=== PATIENT | female | born 1950 | race Caucasian/White ===

== ENCOUNTER 2021-07-30 19:08 | Emergency (ER) | payer MEDICARE, BC ==
[2021-07-30] MEDS ORDERED: Cyclobenzaprine 10 MG Tab PO ONE (19:09)
[2021-07-30] MEDS ORDERED: Acetaminophen/HYDROcodone 325-5 MG Tab PO ONE (19:09)
[2021-07-30 19:53] VITALS: BP 153/75; PULSE 119
[2021-07-30] MEDS ORDERED: Orphenadrine 60 MG/2 ML Inj IM ONE (20:07)
[2021-07-30] MEDS ORDERED: fentaNYL 100 MCG/2 ML SDV IVPUSH ONE (20:08)
--- NOTE | 2021-07-30 20:43 | EDM.PDOC ---
ED HPI GENERAL MEDICAL PROBLEM - General Chief Complaint: Lower Extremity Injury/Pain Stated Complaint: RIGHT LEG PULLED MUSCLES Time Seen by Provider: 07/30/21 19:30 Source of Information: Reports: Patient History Limitations: Reports: No Limitations - History of Present Illness INITIAL COMMENTS - FREE TEXT/NARRATIVE: ED per w/c reports fall 2 hours prior, going up stair, right foot caught fell forward with foot under/ between stair, groin pain and buttock with straightening denied pain in pelvis or hip area leg Did not hit head. 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 Right Upper Posterior Leg Pain Score (Numeric/FACES): 1 - Related Data Allergies Allergy/AdvReac Type Severity Reaction Status Date / Time Penicillins Allergy Hives Verified 07/30/21 19:53 Sulfa (Sulfonamide Allergy Hives Verified 07/30/21 19:53 Antibiotics) sulfamethoxazole Allergy Hives Verified 07/30/21 19:53 [From Bactrim] trimethoprim [From Bactrim] Allergy Hives Verified 07/30/21 19:53 Home Meds: Home Meds ALPRAZolam [Xanax] 1 tab PO BEDTIME PRN 04/18/14 [History] Acetaminophen [Tylenol Arthritis Pain] 650 mg PO Q8H PRN 04/18/14 [History] Calcium Carbonate [Tums] 1 tab PO 6XDAY PRN 04/18/14 [History] Cholecalciferol (Vitamin D3) [Vitamin D3] 1 cap PO DAILY 04/18/14 [History] Escitalopram [Lexapro] 20 mg PO DAILY 04/18/14 [History] Glucosam/Chondr/Collagn/Hyalur [Glucosamine & Chondroitin Cap] 1 tab PO DAILY 04/18/14 [History] Levothyroxine [Synthroid] 50 mcg PO ACBRK 04/18/14 [History] Lisinopril [Zestril] 20 mg PO DAILY 04/18/14 [History] Mv,Calcium,Min/Iron/Folic/Vitk [Multi For Her Tablet] 1 tab PO DAILY 04/18/14 [History] [place]-3 Acid Ethyl Esters 1 cap PO DAILY 04/18/14 [History] Simvastatin [Zocor] 40 mg PO BEDTIME 04/18/14 [History] Past Medical History Cardiovascular History: Reports: High Cholesterol, Hypertension Musculoskeletal History: Reports: RA Endocrine/Metabolic History: Reports: Hypothyroidism Social & Family History - Family History Family Medical History: No Pertinent Family History - Tobacco Use Tobacco Use Status *Q: Unknown Ever Used Tobacco - Caffeine Use Caffeine Use: Reports: Coffee, Soda, Tea - Recreational Drug Use Recreational Drug Use: No - Living Situation & Occupation Living situation: Reports: with Family Review of Systems - Review of Systems Review Of Systems: Comprehensive ROS is negative, except as noted in HPI. ED EXAM, GENERAL - Physical Exam Exam: See Below Exam Limited By: No Limitations General Appearance: Alert, Anxious, Moderate Distress Eye Exam: Bilateral Eye: EOMI, PERRL Ears: Normal External Exam, Hearing Grossly Normal Nose: Normal Inspection Throat/Mouth: Normal Inspection Head: Atraumatic, Normocephalic Neck: Normal Inspection Respiratory/Chest: Lungs Clear, Normal Breath Sounds Cardiovascular: Regular Rate, Rhythm GI/Abdominal: Normal Bowel Sounds Back Exam: Normal Inspection Extremities: Normal Inspection, Limited Range of Motion (right hip pain upper posterior thigh buttock) Neurological: Alert, Oriented Course - Vital Signs Last Recorded V/S: Last Vital Signs Temp 98.7 F 07/30/21 19:15 Pulse 119 H 07/30/21 19:15 Resp 20 07/30/21 19:15 BP 153/75 H 07/30/21 19:15 Pulse Ox 97 07/30/21 19:15 - Orders/Labs/Meds Meds: Medications Discontinued Medications Generic Name Dose Route Start Last Admin Trade Name Dayna PRN Reason Stop Dose Admin Hydrocodone Bitart/Acetaminophen Confirm 07/30/21 22:35 07/30/21 22:45 Acetaminophen/Hydrocodone 325-5 Mg Tab Administered 07/30/21 22:36 Not Given Dose 3 tab .ROUTE .STK-MED ONE Hydrocodone Bitart/Acetaminophen 1 tab 07/30/21 19:09 Acetaminophen/Hydrocodone 325-5 Mg Tab PO 07/30/21 19:10 .STK-MED ONE Cyclobenzaprine HCl Confirm 07/30/21 22:35 07/30/21 22:39 Cyclobenzaprine 10 Mg Tab Administered 07/30/21 22:36 Not Given Dose 20 mg .ROUTE .STK-MED ONE Cyclobenzaprine HCl 10 mg 07/30/21 19:09 Cyclobenzaprine 10 Mg Tab PO 07/30/21 19:10 .STK-MED ONE Fentanyl 25 mcg 07/30/21 20:08 07/30/21 20:44 Fentanyl 100 Mcg/2 Ml Sdv IVPUSH 07/30/21 20:09 Not Given ONETIME ONE Orphenadrine Citrate 60 mg 07/30/21 20:07 07/30/21 20:40 Orphenadrine 60 Mg/2 Ml Inj IM 07/30/21 20:08 60 mg ONETIME ONE Administration Departure - Departure Time of Disposition: 22:29 Disposition: Home, Self-Care 01 Condition: Fair Clinical Impression: Muscle strain, Pain of right hip, Fall (on) (from) other stairs and steps, initial encounter - Discharge Information *PRESCRIPTION DRUG MONITORING PROGRAM REVIEWED*: No *COPY OF PRESCRIPTION DRUG MONITORING REPORT IN PATIENT ALISIA: No Instructions: Musculoskeletal Pain Referrals: Konrad Mackenzie NP [Primary Care Provider] - Forms: ED Department Discharge Additional Instructions: use walker weight bearing as tolerated ice to are tylenol 500mg every 4 hours as needed for discomfort, no greater than 3000mg of tylenol/acetaminophen per 24 hours may alternate ibuprofen 600mg , take with food hydrocodone aPAP 5/325 one every 6 hours as needed for severe pain Follow up clinic on Monday Sepsis Event Note (ED) - Evaluation Sepsis Screening Result: No Definite Risk
--- NOTE | 2021-07-30 21:55 | CT ---
PROCEDURE INFORMATION: Exam: CT Pelvis Without Contrast; Skeletal Exam date and time: 07/30/2021 8:57 PM Age: 70 years old Clinical indication: Other: Fall/pain; Additional info: Fall, right groin buttock thigh pain to knee TECHNIQUE: Imaging protocol: Computed tomography images of the pelvis without contrast. Exam focused on the skeletal structures. Radiation optimization: All CT scans at this facility use at least one of these dose optimization techniques: automated exposure control; mA and/or kV adjustment per patient size (includes targeted exams where dose is matched to clinical indication); or iterative reconstruction. COMPARISON: No relevant prior studies available. FINDINGS: Appendix: The appendix is visualized and is normal in configuration. Bones/joints: Loss of disc height and vacuum disc phenomenon is seen at L4-L5. There is broad-based posterior disc bulging seen at L4-L5 encroaching on the neural foramina bilaterally. Broad-based posterior disc bulging is seen at L5-S1 as well encroaching on the neural bilaterally. Soft tissues: Unremarkable. IMPRESSION: 1. There are no acute osseous findings. 2. Degenerative disc disease seen L4-S1.
--- NOTE | 2021-07-30 21:56 | CT ---
PROCEDURE INFORMATION: Exam: CT Right Lower Extremity Without Contrast; Thigh Exam date and time: 07/30/2021 8:57 PM Age: 70 years old Clinical indication: Other: Fall/pain; Additional info: Fall, right groin buttock thigh pain to knee TECHNIQUE: Imaging protocol: CT of the Right lower extremity without contrast was performed. Exam focused on the thigh. Radiation optimization: All CT scans at this facility use at least one of these dose optimization techniques: automated exposure control; mA and/or kV adjustment per patient size (includes targeted exams where dose is matched to clinical indication); or iterative reconstruction. COMPARISON: No relevant prior studies available. FINDINGS: Bones/joints: Normal. No acute fracture or dislocation. Soft tissues: Normal. IMPRESSION: Unremarkable CT.
[2021-07-30] MEDS ORDERED: Cyclobenzaprine 10 MG Tab ONE (22:35)
[2021-07-30] MEDS ORDERED: Acetaminophen/HYDROcodone 325-5 MG Tab ONE (22:35)
== END 2021-07-30 23:22 | disposition home or self-care (01) ==
LOC: DL.ED 19:08
DX: S76.011A Strain of muscle, fascia and tendon of right hip, initial encounter (principal); E78.00 Pure hypercholesterolemia, unspecified; I10 Essential (primary) hypertension; E03.9 Hypothyroidism, unspecified; Z79.899 Other long term (current) drug therapy; Z88.0 Allergy status to penicillin; Z88.2 Allergy status to sulfonamides; Z88.1 Allergy status to other antibiotic agents; W10.8XXA Fall (on) (from) other stairs and steps, initial encounter
CPT/HCPCS: 72192; 73700; 96372; 99283; A9270; J2360

== ENCOUNTER → 2022-01-26 | Day surgery (SDC) | payer MEDICARE, BC ==
[~2022-01-26] MED LIST: Acetaminophen 325 MG Tab PO PRN; Acetaminophen/Codeine 300-30 MG Tab PO PRN; Cataract Ophth Solution EYELF ONE; Moxifloxacin 0.5% Ophth Soln 3 ML Bottle EYELF ONE; Ondansetron 4 MG/2 ML SDV IVPUSH PRN; Phenylephrine 10% Ophth Soln 5 ML Bot EYELF ONE; Povidone-Iodine 5% Sterile Ophth Soln 30 ML Bottle EYELF ONE; Proparacaine 0.5% Ophth Soln 15 ML Bottle EYELF ONE; Proparacaine 0.5% Ophth Soln 15 ML Bottle ONE; Sodium Chloride 0.9% 10 ML Syringe FLUSH PRN; Timolol Maleate 0.5% Ophth Soln 5 ML Bottle EYELF ONE; Tropicamide 1% Ophth Soln 15 ML Bottle EYELF ONE
[2022-01-26 06:48] VITALS: BP 135/66; PULSE 96
== END ==
LOC: DL.SDS 06:32
PROVIDERS: ATTEND Ophthalmology
DX: H26.9 Unspecified cataract (principal); Z53.09 Procedure and treatment not carried out because of other contraindication; E03.9 Hypothyroidism, unspecified; E66.9 Obesity, unspecified; Z68.30 Body mass index [BMI] 30.0-30.9, adult; I10 Essential (primary) hypertension; E78.00 Pure hypercholesterolemia, unspecified; Z88.0 Allergy status to penicillin; Z88.2 Allergy status to sulfonamides

== ENCOUNTER 2022-02-09 07:09 | Day surgery (SDC) | payer MEDICARE, BC ==
[~2022-02-09 07:09] MED LIST changes: -Proparacaine 0.5% Ophth Soln 15 ML Bottle ONE
[2022-02-09] MEDS ORDERED: Dexamethasone 4 MG/ML SDV IV ONE (07:10)
[2022-02-09] MEDS ORDERED: Sodium Chloride 0.9% 10 ML Syringe IV ONE (07:10)
[2022-02-09] MEDS ORDERED: Midazolam 1 MG/ML 2 ML SDV IV ONE (07:10)
[2022-02-09] MEDS ORDERED: Lidocaine 1% 30 ML SDV ONE (07:58)
[2022-02-09] MEDS ORDERED: Tetracaine HCl/PF 0.5% 4 ML Bottle EYELF ONE (07:59)
[2022-02-09] MEDS ORDERED: Apraclonidine 0.5% Ophth Soln 5 ML Bot EYELF ONE (07:59)
[2022-02-09] MEDS ORDERED: Dexamethasone/Tobramycin 0.1-0.3% Ophth Oint 3.5 GM Tube EYELF ONE (08:00)
[2022-02-09] MEDS ORDERED: Diclofenac Sodium 0.1% Ophth Soln 5 ML Bottle EYELF ONE (08:00)
[2022-02-09] MEDS ORDERED: Chondroitin Sulfate/Hyaluronate Sodium Ophth Inj 0.75 ML Syringe EYELF ONE (08:01)
[2022-02-09] MEDS ORDERED: Balanced Salt Solution Ophth Irrig 500 ML Bottle IOCULAR ONE (08:01)
[2022-02-09] MEDS ORDERED: Vancomycin 500 MG SDV EYELF ONE (08:01)
[2022-02-09] MEDS ORDERED: Povidone-Iodine 5% Sterile Ophth Soln 30 ML Bottle EYELF ONE (08:01)
[2022-02-09 09:40] VITALS: BP 109/57; PULSE 79
== END 2022-02-09 09:11 | disposition home or self-care (01) ==
LOC: DL.SDS 07:09
PROVIDERS: ATTEND Ophthalmology
DX: H25.812 Combined forms of age-related cataract, left eye (principal); K21.9 Gastro-esophageal reflux disease without esophagitis; G89.29 Other chronic pain; F41.1 Generalized anxiety disorder; I10 Essential (primary) hypertension; E03.9 Hypothyroidism, unspecified; E78.5 Hyperlipidemia, unspecified; E66.09 Other obesity due to excess calories; M54.2 Cervicalgia; M06.9 Rheumatoid arthritis, unspecified; M85.80 Other specified disorders of bone density and structure, unspecified site; E55.9 Vitamin D deficiency, unspecified; Z98.890 Other specified postprocedural states; Z79.899 Other long term (current) drug therapy; Z88.2 Allergy status to sulfonamides; Z88.0 Allergy status to penicillin; Z88.8 Allergy status to other drugs, medicaments and biological substances; Z68.30 Body mass index [BMI] 30.0-30.9, adult
CPT/HCPCS: 00142; A9270-GY; J1100; J2250; J3370; J3490; V2787-GY

== ENCOUNTER 2022-02-23 06:32 | Day surgery (SDC) | payer MEDICARE, BC ==
[~2022-02-23 06:32] MED LIST changes: -Cataract Ophth Solution EYELF ONE; +Cataract Ophth Solution EYERT ONE; -Moxifloxacin 0.5% Ophth Soln 3 ML Bottle EYELF ONE; +Moxifloxacin 0.5% Ophth Soln 3 ML Bottle EYERT ONE; -Phenylephrine 10% Ophth Soln 5 ML Bot EYELF ONE; +Phenylephrine 10% Ophth Soln 5 ML Bot EYERT ONE; -Povidone-Iodine 5% Sterile Ophth Soln 30 ML Bottle EYELF ONE; +Povidone-Iodine 5% Sterile Ophth Soln 30 ML Bottle EYERT ONE; -Proparacaine 0.5% Ophth Soln 15 ML Bottle EYELF ONE; +Proparacaine 0.5% Ophth Soln 15 ML Bottle EYERT ONE; -Timolol Maleate 0.5% Ophth Soln 5 ML Bottle EYELF ONE; +Timolol Maleate 0.5% Ophth Soln 5 ML Bottle EYERT ONE; -Tropicamide 1% Ophth Soln 15 ML Bottle EYELF ONE; +Tropicamide 1% Ophth Soln 15 ML Bottle EYERT ONE
[2022-02-23] MEDS ORDERED: Sodium Chloride 0.9% 10 ML Syringe IV ONE (06:33)
[2022-02-23] MEDS ORDERED: Midazolam 1 MG/ML 2 ML SDV IV ONE (06:33)
[2022-02-23] MEDS ORDERED: Dexamethasone 4 MG/ML SDV IV ONE (06:33)
[2022-02-23] MEDS ORDERED: Tetracaine HCl/PF 0.5% 4 ML Bottle EYERT ONE (08:05)
[2022-02-23] MEDS ORDERED: Povidone-Iodine 5% Sterile Ophth Soln 30 ML Bottle EYERT ONE (08:06)
[2022-02-23] MEDS ORDERED: Lidocaine 1% 30 ML SDV ONE (08:06)
[2022-02-23] MEDS ORDERED: Apraclonidine 0.5% Ophth Soln 5 ML Bot EYERT ONE (08:06)
[2022-02-23] MEDS ORDERED: Diclofenac Sodium 0.1% Ophth Soln 5 ML Bottle EYERT ONE (08:07)
[2022-02-23] MEDS ORDERED: Tobramycin 0.3% Ophth Oint 3.5 GM Tube EYERT ONE (08:08)
[2022-02-23] MEDS ORDERED: Balanced Salt Solution Ophth Irrig 500 ML Bottle IOCULAR ONE (08:09)
[2022-02-23] MEDS ORDERED: Vancomycin 500 MG SDV EYERT ONE (08:10)
[2022-02-23] MEDS ORDERED: Chondroitin Sulfate/Hyaluronate Sodium Ophth Inj 0.75 ML Syringe EYERT ONE (08:11)
[2022-02-23 09:20] VITALS: BP 135/74; PULSE 95
== END 2022-02-23 09:23 | disposition home or self-care (01) ==
LOC: DL.SDS 06:32
PROVIDERS: ATTEND Ophthalmology
DX: H25.811 Combined forms of age-related cataract, right eye (principal); I10 Essential (primary) hypertension; F41.8 Other specified anxiety disorders; E03.9 Hypothyroidism, unspecified; K21.9 Gastro-esophageal reflux disease without esophagitis; E78.5 Hyperlipidemia, unspecified; S39.011A Strain of muscle, fascia and tendon of abdomen, initial encounter; E55.9 Vitamin D deficiency, unspecified; M54.2 Cervicalgia; G89.29 Other chronic pain; M25.551 Pain in right hip; E66.09 Other obesity due to excess calories; M06.9 Rheumatoid arthritis, unspecified; M85.80 Other specified disorders of bone density and structure, unspecified site; Z88.0 Allergy status to penicillin; Z88.2 Allergy status to sulfonamides; Z86.16 Personal history of COVID-19; Z98.890 Other specified postprocedural states; Z79.899 Other long term (current) drug therapy; Z79.890 Hormone replacement therapy; W10.9XXA Fall (on) (from) unspecified stairs and steps, initial encounter
CPT/HCPCS: 66984; A9270; J1100; J2250; J3370; J3490; 00142

== ENCOUNTER 2022-07-12 15:39 | Emergency (ER) | payer MEDICARE, BC ==
[2022-07-12 15:18] VITALS: BP 126/84; PULSE 100
[~2022-07-12 15:39] MED LIST changes: -Acetaminophen 325 MG Tab PO PRN; -Acetaminophen/Codeine 300-30 MG Tab PO PRN; -Cataract Ophth Solution EYERT ONE; -Moxifloxacin 0.5% Ophth Soln 3 ML Bottle EYERT ONE; -Ondansetron 4 MG/2 ML SDV IVPUSH PRN; +Orphenadrine 60 MG/2 ML Inj IM ONE; -Phenylephrine 10% Ophth Soln 5 ML Bot EYERT ONE; -Povidone-Iodine 5% Sterile Ophth Soln 30 ML Bottle EYERT ONE; -Proparacaine 0.5% Ophth Soln 15 ML Bottle EYERT ONE; -Sodium Chloride 0.9% 10 ML Syringe FLUSH PRN; -Timolol Maleate 0.5% Ophth Soln 5 ML Bottle EYERT ONE; -Tropicamide 1% Ophth Soln 15 ML Bottle EYERT ONE
== END 2022-07-12 17:30 | disposition home or self-care (01) ==
LOC: DL.ED 15:39
DX: S39.012A Strain of muscle, fascia and tendon of lower back, initial encounter (principal); N30.01 Acute cystitis with hematuria; K21.9 Gastro-esophageal reflux disease without esophagitis; I10 Essential (primary) hypertension; Z88.0 Allergy status to penicillin; Z88.2 Allergy status to sulfonamides; Z79.899 Other long term (current) drug therapy; Z86.16 Personal history of COVID-19; X58.XXXA Exposure to other specified factors, initial encounter
CPT/HCPCS: 81001; 87086; 87088; 87186; 96372; 99284; J2360

== ENCOUNTER 2022-08-05 12:13 | Emergency (ER) | payer MEDICARE, BC ==
[2022-08-05 12:08] LABS: CHLORIDE,CL 103 mmol/L (98-107); SODIUM,NA 138 mmol/L (136-145)
[2022-08-05 12:13] LABS: ESTIMATED GFR 61 mL/min (>=60)
[2022-08-05 12:14] VITALS: BP 159/97; PULSE 115
[2022-08-05] MEDS: Heparin Sodium 5,000 Units/ML Vial ONE (12:18)
[2022-08-05] MEDS: Heparin Sodium 5,000 Units/ML Vial IVPUSH ONE (12:18)
[2022-08-05] MEDS: Sodium Chloride 0.9% 10 ML Syringe FLUSH PRN (12:18)
[2022-08-05] MEDS: Heparin Sodium/0.45% NaCl 25,000 UNITS/500 ML BAG IV SCH (12:19)
[2022-08-05 12:42] LABS: CORONAVIRUS COVID-19 NAA NEGATIVE (NEGATIVE)
== END 2022-08-05 13:20 ==
LOC: DL.ED 12:13
DX: D21.9 Benign neoplasm of connective and other soft tissue, unspecified (principal); Z20.822 Contact with and (suspected) exposure to COVID-19
CPT/HCPCS: 0240U; 36415; 71045; 80053; 83880; 84484; 85025; 85379; 85610; 85730; 93005; 93010; 96374; 96376; 99284; 99285-25; J1644; J3490

== ENCOUNTER 2022-11-28 11:47 | Emergency (ER) | payer MEDICARE, BC ==
[2022-11-28 12:10] VITALS: BP 101/84; PULSE 121
[2022-11-28 12:58] LABS: AMPHETAMINES,URINE NEGATIVE (NEGATIVE); BARBITURATES,URINE NEGATIVE (NEGATIVE); MDMA (ECSTASY), URINE NEGATIVE (NEGATIVE); METHADONE,URINE NEGATIVE (NEGATIVE); METHAMPHETAMINES,URINE NEGATIVE (NEGATIVE); OXYCODONE,URINE NEGATIVE (NEGATIVE); PHENCYCLIDINE,URINE NEGATIVE (NEGATIVE); TCA,URINE NEGATIVE (NEGATIVE)
[2022-11-28 12:59] LABS: BENZODIAZEPINE,URINE POSITIVE (NEGATIVE); OPIATES,URINE POSITIVE (NEGATIVE)
[2022-11-28 13:28] LABS: ANION GAP 13.9 mEq/L (7-13)
[2022-11-28] MEDS: Sodium Chloride 0.9% 10 ML Syringe FLUSH PRN (13:49)
[2022-11-28 14:02] LABS: CORONAVIRUS COVID-19 NAA NEGATIVE (NEGATIVE); RESPIRATORY SYNCYTIAL VIR NAA NEGATIVE (NEGATIVE)
[2022-11-28] MEDS: cefTRIAXone 2 GM Vial IVPUSH ONE (14:20)
[2022-11-28] MEDS: Sodium Chloride 0.9% 1,000 ML IV ONE (14:27)
[2022-11-28] MEDS: Magnesium Sulfate/Water 2 GM in Premix Bag 1 BAG IV ONE (14:29)
== END 2022-11-28 16:21 | disposition home or self-care (01) ==
LOC: DL.ED 11:47
DX: E86.0 Dehydration (principal); E83.42 Hypomagnesemia; R53.1 Weakness; N30.01 Acute cystitis with hematuria; E78.00 Pure hypercholesterolemia, unspecified; I10 Essential (primary) hypertension; K21.9 Gastro-esophageal reflux disease without esophagitis; E03.9 Hypothyroidism, unspecified; I45.10 Unspecified right bundle-branch block; Z88.0 Allergy status to penicillin; Z88.2 Allergy status to sulfonamides; Z79.899 Other long term (current) drug therapy; Z20.822 Contact with and (suspected) exposure to COVID-19
CPT/HCPCS: 0241U; 36415; 71045; 80053; 80305; 81001; 83605; 83735; 83880; 84443; 84484; 85025; 87086; 87088; 87186; 93005; 96365; 96375; 99285; J0696; J3475; J3490; J7030

== ENCOUNTER 2024-03-12 05:22 | Day surgery (SDC) | payer MEDICARE, BC ==
[2024-03-12] MEDS ORDERED: fentaNYL 100 MCG/2 ML SDV IV ONE (05:23)
[2024-03-12] MEDS ORDERED: Midazolam 1 MG/ML 2 ML SDV IV ONE (05:23)
[2024-03-12] MEDS: Dextrose 5%-0.45% NaCl 1,000 ML IV SCH (05:52)
[2024-03-12] MEDS ORDERED: Midazolam 1 MG/ML 2 ML SDV ONE (06:09)
[2024-03-12] MEDS ORDERED: fentaNYL 100 MCG/2 ML SDV ONE (06:09)
[2024-03-12] MEDS: fentaNYL 100 MCG/2 ML SDV IV ONE ×2 (06:28→06:29)
[2024-03-12] MEDS: Midazolam 1 MG/ML 2 ML SDV IV ONE ×2 (06:29→06:30)
[2024-03-12 08:21] VITALS: BP 121/61; PULSE 65
== END 2024-03-12 08:40 | disposition home or self-care (01) ==
LOC: DL.ENDO 05:22
PROVIDERS: ATTEND Internal Medicine Gastroenterology
DX: R10.13 Epigastric pain (principal); K31.89 Other diseases of stomach and duodenum; I10 Essential (primary) hypertension; K21.9 Gastro-esophageal reflux disease without esophagitis; E78.5 Hyperlipidemia, unspecified
CPT/HCPCS: 87077; 88305; J2250; J3010; J7042

== ENCOUNTER 2024-03-26 06:22 | Day surgery (SDC) | payer MEDICARE, BC ==
[~2024-03-26 06:22] MED LIST changes: +Dextrose 5%-0.45% NaCl 1,000 ML IV SCH; +Midazolam 1 MG/ML 2 ML SDV ONE; -Orphenadrine 60 MG/2 ML Inj IM ONE; +fentaNYL 100 MCG/2 ML SDV ONE
[2024-03-26] MEDS: Dextrose 5%-0.45% NaCl 1,000 ML IV SCH (06:54)
[2024-03-26] MEDS: fentaNYL 100 MCG/2 ML SDV IV ONE ×4 (07:29→07:45)
[2024-03-26] MEDS: Midazolam 1 MG/ML 2 ML SDV IV ONE ×6 (07:30→07:38)
[2024-03-26 09:21] VITALS: BP 127/60; PULSE 81
== END 2024-03-26 09:31 | disposition home or self-care (01) ==
LOC: DL.ENDO 06:22
PROVIDERS: ATTEND Internal Medicine Gastroenterology
DX: Z12.11 Encounter for screening for malignant neoplasm of colon (principal); K21.9 Gastro-esophageal reflux disease without esophagitis; I10 Essential (primary) hypertension; E78.5 Hyperlipidemia, unspecified; F41.8 Other specified anxiety disorders; Z86.16 Personal history of COVID-19
CPT/HCPCS: J2250; J3010; J7042

== ENCOUNTER 2024-07-02 03:58 | Emergency (ER) | payer MEDICARE, BC ==
[2024-07-02] MEDS: Sodium Chloride 0.9% 1,000 ML IV ONE (04:25)
[2024-07-02 04:32] LABS: BASOPHILS PERCENT AUTO 0.6 % (0.0-1.0); EOSINOPHILS PERCENT AUTO 1.2 % (1.0-3.0); HEMATOCRIT 37.6 % (37.0-47.0); HEMOGLOBIN 12.8 g/dL (12.0-16.0); LYMPHOCYTES PERCENT AUTO 11.9 % (20.5-50.1); MEAN CORPUSCULAR VOLUME 96.9 fL (80-100); MONOCYTES PERCENT AUTO 15.9 % (2-8); NEUTROPHILS PERCENT AUTO 70.4 % (42.2-75.2); PLATELET COUNT,PLT 173 10^3/uL (150-450); RED BLOOD CELL COUNT 3.88 10^6/uL (4.2-5.4); WHITE BLOOD CELL COUNT,WBC 7.2 10^3/uL (5.0-10.0)
[2024-07-02 05:17] LABS: ANION GAP 13.3 mEq/L (7-13); CALCIUM 9.2 mg/dL (8.5-10.1); CREATININE 0.8 mg/dL (0.55-1.02); EST CRCL DRUG DOSING (CG) 55.7 mL/min; POTASSIUM,K 3.3 mmol/L (3.5-5.1); TSH ULTRASENSITIVE 2.04 uIU/mL (0.36-3.74)
[2024-07-02] MEDS: Potassium Chloride 10 MEQ Tab.ER PO ONE (05:28)
[2024-07-02 06:11] LABS: APPEARANCE,URINE CLEAR (CLEAR); BILIRUBIN,URINE NEGATIVE (NEGATIVE); COLOR,URINE YELLOW (YELLOW); GLUCOSE,URINE NEGATIVE (NEGATIVE); KETONES,URINE NEGATIVE (NEGATIVE); LEUKOCYTE ESTERASE,URINE NEGATIVE (NEGATIVE); NITRITE,URINE NEGATIVE (NEGATIVE); OCCULT BLOOD,URINE NEGATIVE (NEGATIVE); PROTEIN,URINE NEGATIVE (NEGATIVE)
[2024-07-02 06:31] VITALS: BP 136/74; PULSE 95
== END 2024-07-02 06:35 | disposition home or self-care (01) ==
LOC: DL.ED 03:58
DX: E86.0 Dehydration (principal); E87.6 Hypokalemia; E53.8 Deficiency of other specified B group vitamins; I10 Essential (primary) hypertension; K21.9 Gastro-esophageal reflux disease without esophagitis; E03.9 Hypothyroidism, unspecified; Z88.0 Allergy status to penicillin; Z88.2 Allergy status to sulfonamides; Z88.8 Allergy status to other drugs, medicaments and biological substances; Z79.890 Hormone replacement therapy; Z79.82 Long term (current) use of aspirin; Z79.899 Other long term (current) drug therapy; Z86.16 Personal history of COVID-19; W19.XXXA Unspecified fall, initial encounter
CPT/HCPCS: 36415; 80048; 81003; 82607; 84443; 85025; 96360; 99284; 99284-25; A9270-GY; J7030

== ENCOUNTER 2024-07-05 00:57 | Emergency (ER) | payer MEDICARE, BC ==
[2024-07-05 01:21] LABS: BASOPHILS PERCENT AUTO 0.4 % (0.0-1.0); EOSINOPHILS PERCENT AUTO 3.6 % (1.0-3.0); HEMATOCRIT 34.3 % (37.0-47.0); HEMOGLOBIN 11.9 g/dL (12.0-16.0); LYMPHOCYTES PERCENT AUTO 10.4 % (20.5-50.1); MEAN CORPUSCULAR HEMOGLOBIN 33.6 pg (27.0-34.0); MEAN CORPUSCULAR HGB CONC 34.7 g/dL (33.0-35.0); MEAN CORPUSCULAR VOLUME 96.9 fL (80-100); MONOCYTES PERCENT AUTO 16.7 % (2-8); NEUTROPHILS PERCENT AUTO 68.9 % (42.2-75.2); PLATELET COUNT,PLT 168 10^3/uL (150-450); RED BLOOD CELL COUNT 3.54 10^6/uL (4.2-5.4)
[2024-07-05 01:35] LABS: ANION GAP 10.8 mEq/L (7-13); CALCIUM 9.3 mg/dL (8.5-10.1); CREATININE 0.83 mg/dL (0.55-1.02); EST CRCL DRUG DOSING (CG) 51.43 mL/min; POTASSIUM,K 3.8 mmol/L (3.5-5.1)
[2024-07-05 02:42] VITALS: BP 116/73; PULSE 74
== END 2024-07-05 02:45 | disposition home or self-care (01) ==
LOC: DL.ED 00:57
DX: R53.1 Weakness (principal); I10 Essential (primary) hypertension; E78.00 Pure hypercholesterolemia, unspecified; K21.9 Gastro-esophageal reflux disease without esophagitis; E03.9 Hypothyroidism, unspecified; Z88.0 Allergy status to penicillin; Z88.2 Allergy status to sulfonamides; Z79.890 Hormone replacement therapy; Z79.899 Other long term (current) drug therapy; Z79.82 Long term (current) use of aspirin
CPT/HCPCS: 36415; 80048; 85025; 99285

== ENCOUNTER 2024-07-05 10:07 | Inpatient (IN) | payer MEDICARE, BC ==
[2024-07-05] MEDS ORDERED: Ketorolac 30 MG/ML SDV IM PRN (18:15)
[2024-07-05] MEDS ORDERED: Ondansetron 4 MG/2 ML SDV IVPUSH PRN (18:15)
[2024-07-05] MEDS ORDERED: Albuterol/Ipratropium 3.0-0.5 MG/3 ML Neb Soln NEB PRN (18:15)
[2024-07-05] MEDS ORDERED: Sennosides/Docusate Sodium 50-8.6 MG Tab PO PRN (18:15)
[2024-07-05] MEDS ORDERED: Melatonin 3 MG Tab PO PRN (18:15)
[2024-07-05] MEDS ORDERED: Promethazine 25 MG/ML SDV IM PRN (18:15)
[2024-07-05] MEDS ORDERED: Magnesium Hydroxide 400 MG/5 ML Susp 30 ML Cup PO PRN (18:15)
[2024-07-05] MEDS ORDERED: Polyethylene Glycol 3350 Powder 17 GM Packet PO PRN (18:15)
[2024-07-05] MEDS ORDERED: Sodium Chloride 0.9% 10 ML Syringe FLUSH PRN (18:15)
[2024-07-05] MEDS ORDERED: traMADol 50 MG Tab PO PRN (18:24)
[2024-07-05 18:47] LABS: BASOPHILS PERCENT AUTO 0.5 % (0.0-1.0); EOSINOPHILS PERCENT AUTO 3.2 % (1.0-3.0); HEMATOCRIT 35.5 % (37.0-47.0); HEMOGLOBIN 12.2 g/dL (12.0-16.0); LYMPHOCYTES PERCENT AUTO 12.6 % (20.5-50.1); MEAN CORPUSCULAR HEMOGLOBIN 33.5 pg (27.0-34.0); MEAN CORPUSCULAR HGB CONC 34.4 g/dL (33.0-35.0); MEAN CORPUSCULAR VOLUME 97.5 fL (80-100); MONOCYTES PERCENT AUTO 15.6 % (2-8); NEUTROPHILS PERCENT AUTO 68.1 % (42.2-75.2); PLATELET COUNT,PLT 167 10^3/uL (150-450); RED BLOOD CELL COUNT 3.64 10^6/uL (4.2-5.4); WHITE BLOOD CELL COUNT,WBC 9.4 10^3/uL (5.0-10.0)
[2024-07-05 19:08] LABS: ALBUMIN 3.2 g/dL (3.4-5.0); ANION GAP 14.5 mEq/L (7-13); BILIRUBIN TOTAL 1.8 mg/dL (0.2-1.0); BUN/CREATININE RATIO 18.4 (No establ ref range); CALCIUM 9.4 mg/dL (8.5-10.1); CREATININE 0.76 mg/dL (0.55-1.02); EST CRCL DRUG DOSING (CG) 58.63 mL/min; MAGNESIUM 1.7 mg/dL (1.8-2.4); POTASSIUM,K 3.5 mmol/L (3.5-5.1); PROTEIN TOTAL,TP 6.5 g/dL (6.4-8.2)
[2024-07-05 19:14] LABS: A/G RATIO 0.97
[2024-07-05 19:16] LABS: C-REACTIVE PROTEIN 8.14 ng/dL (<=0.50); T4 FREE 1.39 ng/dL (0.76-1.46); TSH ULTRASENSITIVE 1.39 uIU/mL (0.36-3.74)
[2024-07-05] MEDS: Sodium Chloride 0.9% 10 ML Syringe FLUSH SCH (21:02)
[2024-07-05] MEDS: MVI, Adult with Vitamin K 10 ML, Folic Acid 1 MG, Thiamine 100 MG in Lactated Ringers 1... IV ONE (21:03)
[2024-07-05] MEDS ORDERED: ALPRAZolam 0.5 MG Tab PO PRN (21:04)
[2024-07-05 21:06] LABS: APPEARANCE,URINE CLEAR (CLEAR); BILIRUBIN,URINE NEGATIVE (NEGATIVE); COLOR,URINE DARK YELLOW (YELLOW); GLUCOSE,URINE NEGATIVE (NEGATIVE); KETONES,URINE NEGATIVE (NEGATIVE); LEUKOCYTE ESTERASE,URINE TRACE (NEGATIVE); NITRITE,URINE NEGATIVE (NEGATIVE); OCCULT BLOOD,URINE NEGATIVE (NEGATIVE); PROTEIN,URINE NEGATIVE (NEGATIVE)
[2024-07-05 21:13] LABS: AMPHETAMINES,URINE NEGATIVE (NEGATIVE); BARBITURATES,URINE NEGATIVE (NEGATIVE); BENZODIAZEPINE,URINE NEGATIVE (NEGATIVE); MDMA (ECSTASY), URINE NEGATIVE (NEGATIVE); METHADONE,URINE NEGATIVE (NEGATIVE); METHAMPHETAMINES,URINE NEGATIVE (NEGATIVE); OPIATES,URINE NEGATIVE (NEGATIVE); OXYCODONE,URINE NEGATIVE (NEGATIVE); PHENCYCLIDINE,URINE NEGATIVE (NEGATIVE); TCA,URINE NEGATIVE (NEGATIVE)
[2024-07-05 21:15] LABS: AMORPHOUS SEDIMENT,URINE FEW /HPF (NOT SEEN); BACTERIA,URINE FEW /HPF (0-FEW/HPF); EPITHELIAL CELLS,URINE FEW /HPF (NOT SEEN); RBC,URINE NOT SEEN /HPF (0-5); WBC,URINE 0-5 /HPF (0-5/HPF)
[2024-07-05] MEDS: Magnesium Sulfate/Water 2 GM in Premix Bag 1 BAG IV ONE (21:45)
[2024-07-05] MEDS: Methotrexate 2.5 MG Tab PO SCH (22:01)
[2024-07-06] MEDS: Levothyroxine 50 MCG Tab PO SCH (06:05)
[2024-07-06] MEDS: Pantoprazole 40 MG Tab.CR PO SCH (06:05)
[2024-07-06 06:20] LABS: BASOPHILS PERCENT AUTO 0.6 % (0.0-1.0); EOSINOPHILS PERCENT AUTO 4.5 % (1.0-3.0); HEMATOCRIT 32.7 % (37.0-47.0); HEMOGLOBIN 11.1 g/dL (12.0-16.0); LYMPHOCYTES PERCENT AUTO 11.1 % (20.5-50.1); MEAN CORPUSCULAR HEMOGLOBIN 32.7 pg (27.0-34.0); MEAN CORPUSCULAR HGB CONC 33.9 g/dL (33.0-35.0); MEAN CORPUSCULAR VOLUME 96.5 fL (80-100); MONOCYTES PERCENT AUTO 17.2 % (2-8); NEUTROPHILS PERCENT AUTO 66.6 % (42.2-75.2); PLATELET COUNT,PLT 160 10^3/uL (150-450); RED BLOOD CELL COUNT 3.39 10^6/uL (4.2-5.4); WHITE BLOOD CELL COUNT,WBC 7.2 10^3/uL (5.0-10.0)
[2024-07-06 06:45] LABS: ALBUMIN 2.6 g/dL (3.4-5.0); ANION GAP 11.1 mEq/L (7-13); BILIRUBIN TOTAL 1.5 mg/dL (0.2-1.0); BUN/CREATININE RATIO 14.7 (No establ ref range); CALCIUM 8.6 mg/dL (8.5-10.1); CREATININE 0.68 mg/dL (0.55-1.02); EST CRCL DRUG DOSING (CG) 65.53 mL/min; POTASSIUM,K 3.1 mmol/L (3.5-5.1); PROTEIN TOTAL,TP 5.3 g/dL (6.4-8.2)
[2024-07-06 06:53] LABS: A/G RATIO 0.96
[2024-07-06] MEDS ORDERED: OMEGA ACID ETHYL ESTERS PO SCH (09:00)
[2024-07-06] MEDS: Folic Acid 1 MG Tab PO SCH (09:04)
[2024-07-06] MEDS: Multivitamin Tab PO SCH (09:04)
[2024-07-06] MEDS: Cholecalciferol (Vitamin D3) 25 MCG Tab PO SCH (09:04)
[2024-07-06] MEDS: Sertraline 50 MG Tab PO SCH (09:04)
[2024-07-06] MEDS: Potassium Chloride 10 MEQ Tab.ER PO ONE (12:24)
[2024-07-06] MEDS: Acetaminophen 325 MG Tab PO PRN (12:27)
[2024-07-07 06:52] LABS: BASOPHILS PERCENT AUTO 0.4 % (0.0-1.0); EOSINOPHILS PERCENT AUTO 3.8 % (1.0-3.0); HEMATOCRIT 34.3 % (37.0-47.0); HEMOGLOBIN 11.6 g/dL (12.0-16.0); LYMPHOCYTES PERCENT AUTO 11.9 % (20.5-50.1); MEAN CORPUSCULAR HGB CONC 33.8 g/dL (33.0-35.0); MEAN CORPUSCULAR VOLUME 97.7 fL (80-100); MONOCYTES PERCENT AUTO 10.2 % (2-8); NEUTROPHILS PERCENT AUTO 73.7 % (42.2-75.2); PLATELET COUNT,PLT 164 10^3/uL (150-450); RED BLOOD CELL COUNT 3.51 10^6/uL (4.2-5.4); WHITE BLOOD CELL COUNT,WBC 9.2 10^3/uL (5.0-10.0)
[2024-07-07 07:19] LABS: ALBUMIN 2.7 g/dL (3.4-5.0); BILIRUBIN TOTAL 1.7 mg/dL (0.2-1.0); BUN/CREATININE RATIO 12.7 (No establ ref range); CALCIUM 8.9 mg/dL (8.5-10.1); CREATININE 0.71 mg/dL (0.55-1.02); EST CRCL DRUG DOSING (CG) 62.76 mL/min; MAGNESIUM 1.8 mg/dL (1.8-2.4); PROTEIN TOTAL,TP 5.7 g/dL (6.4-8.2)
[2024-07-07 07:24] LABS: A/G RATIO 0.9
[2024-07-08 06:26] LABS: HEMATOCRIT 34.3 % (37.0-47.0); HEMOGLOBIN 11.8 g/dL (12.0-16.0); MEAN CORPUSCULAR HEMOGLOBIN 33.2 pg (27.0-34.0); MEAN CORPUSCULAR HGB CONC 34.4 g/dL (33.0-35.0); MEAN CORPUSCULAR VOLUME 96.6 fL (80-100); PLATELET COUNT,PLT 177 10^3/uL (150-450); RED BLOOD CELL COUNT 3.55 10^6/uL (4.2-5.4)
[2024-07-08 06:33] LABS: BASOPHILS PERCENT AUTO 0.5 % (0.0-1.0); EOSINOPHILS PERCENT AUTO 5.5 % (1.0-3.0); LYMPHOCYTES PERCENT AUTO 13.1 % (20.5-50.1); MONOCYTES PERCENT AUTO 14.4 % (2-8); NEUTROPHILS PERCENT AUTO 66.5 % (42.2-75.2)
[2024-07-08 06:49] LABS: ALBUMIN 2.7 g/dL (3.4-5.0); ANION GAP 12.8 mEq/L (7-13); BILIRUBIN TOTAL 1.7 mg/dL (0.2-1.0); BUN/CREATININE RATIO 12.9 (No establ ref range); CALCIUM 9.1 mg/dL (8.5-10.1); CREATININE 0.7 mg/dL (0.55-1.02); EST CRCL DRUG DOSING (CG) 63.65 mL/min; MAGNESIUM 1.8 mg/dL (1.8-2.4); POTASSIUM,K 3.8 mmol/L (3.5-5.1); PROTEIN TOTAL,TP 5.7 g/dL (6.4-8.2)
[2024-07-08 06:56] LABS: A/G RATIO 0.9
[2024-07-08 07:05] LABS: EOSINOPHILS PERCENT MAN 6 % (1-3); LYMPHOCYTES PERCENT MAN 15 % (20-50); MONOCYTES PERCENT MAN 12 % (2-8); SEG NEUTROPHILS PERCENT MAN 67 % (42-75)
[2024-07-09 06:43] LABS: BASOPHILS PERCENT AUTO 0.5 % (0.0-1.0); EOSINOPHILS PERCENT AUTO 7.7 % (1.0-3.0); HEMATOCRIT 34.3 % (37.0-47.0); HEMOGLOBIN 11.8 g/dL (12.0-16.0); LYMPHOCYTES PERCENT AUTO 13.2 % (20.5-50.1); MEAN CORPUSCULAR HEMOGLOBIN 33.1 pg (27.0-34.0); MEAN CORPUSCULAR HGB CONC 34.4 g/dL (33.0-35.0); MEAN CORPUSCULAR VOLUME 96.3 fL (80-100); NEUTROPHILS PERCENT AUTO 65.6 % (42.2-75.2); PLATELET COUNT,PLT 186 10^3/uL (150-450); RED BLOOD CELL COUNT 3.56 10^6/uL (4.2-5.4); WHITE BLOOD CELL COUNT,WBC 8.2 10^3/uL (5.0-10.0)
[2024-07-09 07:03] LABS: ALBUMIN 2.6 g/dL (3.4-5.0); ANION GAP 10.5 mEq/L (7-13); BILIRUBIN TOTAL 1.8 mg/dL (0.2-1.0); BUN/CREATININE RATIO 16.2 (No establ ref range); CALCIUM 9.1 mg/dL (8.5-10.1); CREATININE 0.74 mg/dL (0.55-1.02); EST CRCL DRUG DOSING (CG) 60.21 mL/min; MAGNESIUM 1.8 mg/dL (1.8-2.4); POTASSIUM,K 3.5 mmol/L (3.5-5.1); PROTEIN TOTAL,TP 5.7 g/dL (6.4-8.2)
[2024-07-09 07:06] LABS: A/G RATIO 0.84
[2024-07-09 12:36] VITALS: BP 108/61; PULSE 88
== END 2024-07-09 13:55 | disposition home or self-care (01) | DRG 884 ==
LOC: DL.MS 10:07 → UNDOADMOB 17:40 → DL.MS 17:40 → OBSVTOIN 07-07 10:07
PROVIDERS: ADMIT Internal Medicine; ATTEND Internal Medicine
DX: F03.93 Unspecified dementia, unspecified severity, with mood disturbance (principal); G93.41 Metabolic encephalopathy; D84.9 Immunodeficiency, unspecified; E87.1 Hypo-osmolality and hyponatremia; F03.94 Unspecified dementia, unspecified severity, with anxiety; I10 Essential (primary) hypertension; E78.5 Hyperlipidemia, unspecified; I27.20 Pulmonary hypertension, unspecified; E03.9 Hypothyroidism, unspecified; K21.9 Gastro-esophageal reflux disease without esophagitis; M06.9 Rheumatoid arthritis, unspecified; M81.0 Age-related osteoporosis without current pathological fracture; M25.551 Pain in right hip; G89.29 Other chronic pain; M19.90 Unspecified osteoarthritis, unspecified site; E66.9 Obesity, unspecified; R29.6 Repeated falls; R74.01 Elevation of levels of liver transaminase levels; E78.00 Pure hypercholesterolemia, unspecified; K59.09 Other constipation; E87.6 Hypokalemia; E88.09 Other disorders of plasma-protein metabolism, not elsewhere classified; E83.42 Hypomagnesemia; Z98.49 Cataract extraction status, unspecified eye; Z98.890 Other specified postprocedural states; Z86.16 Personal history of COVID-19; Z87.81 Personal history of (healed) traumatic fracture; Z68.27 Body mass index [BMI] 27.0-27.9, adult; Z88.0 Allergy status to penicillin; Z88.2 Allergy status to sulfonamides; Z88.1 Allergy status to other antibiotic agents; Z79.899 Other long term (current) drug therapy
CPT/HCPCS: 36415; 70551; 71045; 80053; 80305-QW; 81001; 82140; 82306; 82550; 83605; 83735; 84439; 84443; 84484; 85025; 85651; 85730; 86140; 96365; 96366; 96368; 97129-GO; 97161-GP; 97165-GO; 99223; 99232; 99238; A9270-GY; G0378; J3411; J3475; J3490; J7120; J8610; U0002